=== PATIENT | male | born 1975 | race Caucasian/White ===

== ENCOUNTER 2019-10-14 06:14 | Emergency (ER) | payer SELFPAY ==
[~2019-10-14] VITALS: Ht 182.9 cm; Wt 113.4 kg
--- NOTE | 2019-10-14 06:20 | NUR ---
BIBA W/ C/O HYPERGLYCEMIA. PT ALERT, OX4. W/ C/O DIZZINESS. VSS. PT REPORTED FEELING WEAK AND DIAPHORETIC EARLIER IN THE MORNING. WAS SEEN AT A 24 HOUR CLINIC W/ HIGH BS. AND RECEIVED JANUVIA 100MG PO.
[2019-10-14 06:57] LABS: BASOPHILS % (AUTO) 0.4 % (0.0-2.0); EOSINOPHILS % (AUTO) 1.9 % (0.0-6.0); HEMATOCRIT 38 % (39-51); HEMOGLOBIN 13.1 g/dL (13.5-17.5); LYMPHOCYTES # (AUTO) 1.9 /CMM (0.8-4.8); LYMPHOCYTES % (AUTO) 28.8 % (20.0-44.0); MEAN CORPUSCULAR HGB CONC 34 g/dl (31.0-36.0); MEAN CORPUSCULAR VOLUME 92 fL (80-96); MONOCYTES # (AUTO) 0.4 /CMM (0.1-1.30); MONOCYTES % (AUTO) 6.7 % (2.0-12.0); NEUTROPHILS % (AUTO) 62.2 % (43.0-81.0); PLATELET COUNT (AUTO) 191 /CMM (150-450); RED BLOOD CELL COUNT(AUTO) 4.15 MIL/uL (4.5-6.0); WHITE BLOOD COUNT (AUTO) 6.5 K/uL (4.3-11.0)
[2019-10-14] MEDS ORDERED: IV NS 0.9% 1,000 ML BAG IV ONE (07:00)
--- NOTE | 2019-10-14 07:19 | NUR ---
ASKED PT FOR URINE SAMPLE. PT UNABLE TO PROVIDE URINE SAMPLE AT THIS TIME. WILL F/U
[2019-10-14 07:45] LABS: ALANINE AMINOTRANSFERASE 26 U/L (12-78); ALBUMIN 3.6 g/dL (3.4-5.0); ALKALINE PHOSPHATASE 96 U/L (46-116); ASPARTATE AMINOTRANSFERASE 15 U/L (15-37); BILIRUBIN,DIRECT 0.1 mg/dL (0.0-0.2); BILIRUBIN,TOTAL 0.3 mg/dL (0.2-1.0); CALCIUM, SERUM 8.7 mg/dL (8.5-10.1); CARBON DIOXIDE 23 mmol/L (21-32); CHLORIDE 98 mmol/L (98-107); CREATININE 0.8 mg/dL (0.6-1.3); POTASSIUM 3.7 mmol/L (3.5-5.1); SODIUM SERUM 134 mmol/L (136-145); UREA NITROGEN, BLOOD 13 mg/dL (7-18)
[2019-10-14 07:48] LABS: GLUCOSE 446 mg/dL (74-106)
--- NOTE | 2019-10-14 07:51 | NUR ---
BLOOD GLUCOSE 446.
[2019-10-14] MEDS ORDERED: INSULIN REGULAR, HUMAN 100 UNIT/ML 10 ML VIAL IV ONE (08:00)
--- NOTE | 2019-10-14 08:08 | NUR ---
Assumed care report given by Filomena LIEBERMAN
[2019-10-14] MEDS ORDERED: INSULIN REGULAR, HUMAN 100 UNIT/ML 10 ML VIAL ONE (08:11)
--- NOTE | 2019-10-14 08:22 | NUR ---
Pt is awake and alert oriented blood sugar 446 insulin IV given. Pt is able to obtain urine and sent to the lab.
[2019-10-14 09:13] LABS: APPEARANCE,URINE Clear (CLEAR); BILIRUBIN,URINE Negative (NEGATIVE); BLOOD, URINE Negative Ery/uL (NEGATIVE); COLOR,URINE Yellow (YELLOW); KETONES,URINE Negative (NEGATIVE); LEUKOCYTE ESTERASE ,URINE Negative (NEGATIVE); NITRITE, URINE Negative (NEGATIVE); PROTEIN,URINE Negative (NEGATIVE); UGLUCOSE >=1000 mg/dL (NEGATIVE); UROBILINOGEN,URINE 0.2 EU/dL (0.2)
[2019-10-14 09:25] LABS: BACTERIA,URINE None seen /HPF (None Seen); RBC,URINE 0-2 /HPF (0-2); WBC,URINE 0-2 /HPF (0-3)
[2019-10-14 09:26] LABS: MUCUS,URINE Few /LPF (None Seen); SQUAMOUS EPITHELIAL CELL,UR None Seen /HPF (None Seen)
[2019-10-14 10:38] VITALS: BP 134/78
--- NOTE | 2019-10-14 10:38 | NUR ---
Patient declined nursing home awaiting fo Bus ticket
--- NOTE | 2019-10-14 10:43 | NUR ---
Patient declined halfway he agrees to follow up pmd in Am and agrees to gfollow up PMD in AM ,noted patient is ambulatory he refused to wait for Bus ticket non distress @ this time
--- NOTE | 2019-10-14 10:47 | NUR ---
Patient left the DC home instruction in the bed .
== END 2019-10-14 10:47 | disposition home or self-care (01) ==
LOC: ER 06:14
DX: R53.1 Weakness (principal); E11.65 Type 2 diabetes mellitus with hyperglycemia; R42 Dizziness and giddiness; I10 Essential (primary) hypertension
CPT/HCPCS: 36415; 71045; 80048; 80076; 81001; 82010; 82962 ×2; 84484; 85025; 93005; 96361; 96374; 99284; J1815; J7030; 81000-TC

== ENCOUNTER 2024-01-30 03:41 | Emergency (ER) | payer MEDICAID ==
[~2024-01-30] VITALS: Ht 182.9 cm; Wt 104.3 kg
[2024-01-30 03:53] VITALS: BP 138/93; TEMP 98.3; O2SAT 97
[2024-01-30] MEDS ORDERED: TDAP [DIPH/PERTUSSIS/TET] 0.5 ML VIAL IM ONE (03:58)
[2024-01-30] MEDS ORDERED: IBUPROFEN 400 MG TABLET ONE (03:58)
[2024-01-30] MEDS: IBUPROFEN 400 MG TABLET PO ONE (04:14)
[2024-01-30] MEDS: TDAP [DIPH/PERTUSSIS/TET] 0.5 ML VIAL IM ONE (04:14)
== END 2024-01-30 04:55 | disposition home or self-care (01) ==
LOC: ER 03:42
DX: S90.32XA Contusion of left foot, initial encounter (principal); I10 Essential (primary) hypertension; E11.9 Type 2 diabetes mellitus without complications; Z60.2 Problems related to living alone; V09.20XA Pedestrian injured in traffic accident involving unspecified motor vehicles, initial encounter; Y93.89 Activity, other specified; Y92.89 Other specified places as the place of occurrence of the external cause; Y99.8 Other external cause status
CPT/HCPCS: 73630-TC; 90715